=== PATIENT | female | born 1935 | race Caucasian/White ===

== ENCOUNTER 2021-06-16 13:55 | Inpatient (IN) | payer MEDICARE, BC ==
[~2021-06-16] VITALS: Ht 152.4 cm; Wt 58.6 kg
[2021-06-16 14:43] LABS: BASOPHILS % (AUTO) 0.3 % (0-1); EOSINOPHILS # (AUTO) 0.1 X10'3 (0-0.9); EOSINOPHILS % (AUTO) 1.1 % (0-6); HEMATOCRIT 38.2 % (35.0-45.0); HEMOGLOBIN 12.8 g/dl (12.0-16.0); LYMPHOCYTES # (AUTO) 2.8 X10'3 (1.1-4.8); MEAN CORPUSCULAR HEMOGLOBIN 30.9 PG (27.0-31.0); MEAN CORPUSCULAR HGB CONC 33.7 g/dL (33.0-36.5); MEAN CORPUSCULAR VOLUME 91.8 FL (78-98); MEAN PLATELET VOLUME 7.9 FL (7.4-10.4); MONOCYTES # (AUTO) 0.8 X10'3 (0-0.9); NEUTROPHILS # (AUTO) 4.8 X10'3 (1.8-7.7); NEUTROPHILS % (AUTO) 56.6 % (42-75); PLATELET COUNT 223 X10'3 (140-440); RED BLOOD COUNT 4.16 X10'6 (4.20-5.60); RED CELL DISTRIBUTION WIDTH 13.7 % (11.5-14.5); WHITE BLOOD COUNT 8.6 X10'3 (4.5-11.0)
[2021-06-16 15:37] LABS: ALANINE AMINOTRANSFERASE 32 U/L (12-78); ALBUMIN 3.6 G/DL (3.4-5.0); ALKALINE PHOSPHATASE 81 IU/L (46-116); ANION GAP 11 (8-16); ASPARTATE AMINO TRANSFERASE 27 U/L (10-37); BILIRUBIN,TOTAL 0.5 MG/DL (0.1-1.0); BLOOD UREA NITROGEN 16 MG/DL (7-18); CALCIUM 8.3 MG/DL (8.5-10.1); CHLORIDE 101 MMOL/L (99-107); CREATININE 0.84 MG/DL (0.40-0.90); GLUCOSE 104 MG/DL (70-104); LIPASE 153 U/L (73-393); POTASSIUM 3.7 MMOL/L (3.5-5.1); SODIUM 140 MMOL/L (135-145); TOTAL CARBON DIOXIDE 27.8 MMOL/L (24-32); TOTAL PROTEIN 7.2 G/DL (6.4-8.2); eGFR 64 ML/MIN
[2021-06-16] MEDS ORDERED: pantoprazole IV 80 MG in normal saline 100ml IV soln 100 ML IV ONE (15:55)
--- NOTE | 2021-06-16 15:55 | NUR ---
LOCATION DIRECTOR AT BEDSIDE.
[2021-06-16] MEDS ORDERED: pantoprazole IV 40 MG in normal saline 100ml IV soln 100 ML IV SCH (16:05)
[2021-06-16] MEDS ORDERED: haloperidol 5mg tablet PO ONE (16:10)
[2021-06-16] MEDS ORDERED: QUET25TA36 PO (16:13)
[2021-06-16] MEDS ORDERED: QUET50TA24 PO (16:13)
[2021-06-16] MEDS ORDERED: BIMA2.5D EACHEYE (16:13)
[2021-06-16] MEDS ORDERED: SERT-433 PO (16:13)
[2021-06-16] MEDS ORDERED: pantoprazole 40MG/NS 100ML BAG 100 ML IV SCH (16:20)
[2021-06-16 16:30] LABS: APTT 25 SECONDS (22-32)
[2021-06-16] MEDS ORDERED: magnesium Cl slow-release 64mg tablet PO PRN (18:05)
[2021-06-16] MEDS ORDERED: magnesium hydroxide 30ml (MOM) UD suspension PO PRN (18:05)
[2021-06-16] MEDS ORDERED: mag hydrox/Alum hydrox/simeth 30ml oral suspension PO PRN (18:05)
[2021-06-16] MEDS ORDERED: ondansetron/PF 4mg/2ml inj IV PRN (18:05)
[2021-06-16] MEDS ORDERED: potassium Cl 20 mEq SR tablet PO PRN ×2 (18:05)
[2021-06-16] MEDS ORDERED: magnesium 2GM in 50ml NS 50 ML IV PRN (18:05)
[2021-06-16] MEDS ORDERED: HYDROcodone/acetaminophen 5mg/325mg tablet PO PRN (18:05)
[2021-06-16] MEDS ORDERED: morphine 2 MG/ML inj. syringe IV PRN ×2 (18:05)
[2021-06-16] MEDS ORDERED: HYDROcodone/acetaminophen 10/325mg tab PO PRN (18:05)
[2021-06-16] MEDS ORDERED: acetaminophen 325mg tablet PO PRN ×2 (18:05)
[2021-06-16] MEDS ORDERED: diphenhydrAMINE 25mg capsule PO PRN (18:05)
[2021-06-16] MEDS ORDERED: bisacodyl 10mg suppository rectal RC PRN (18:05)
[2021-06-16] MEDS ORDERED: potassium CL 10mEq/100ml bag 100 ML IV PRN (18:05)
[2021-06-16] MEDS ORDERED: acetaminophen 650mg rectal suppository RC PRN (18:05)
[2021-06-16] MEDS ORDERED: magnesium 4gm in 100ml NS 100 ML IV PRN (18:05)
[2021-06-16] MEDS: pantoprazole 40MG/NS 100ML BAG 100 ML IV SCH ×2 (19:05→20:16)
[2021-06-16] MEDS: normal saline 1000ml 1,000 ML IV SCH (19:06)
[2021-06-16] MEDS: K and/or MAG REPLACEMENT MC SCH (19:12)
[2021-06-16] MEDS ORDERED: QUEtiapine 25mg tablet PO SCH (20:00)
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
[2021-06-16] MEDS ORDERED: haloperidol lactate 5mg/ml inj IM ONE (20:20)
[2021-06-16] MEDS: docusate sod 100mg capsule PO SCH (20:33)
[2021-06-16] MEDS ORDERED: diazepam inj 5 MG/ML inj. IM ONE (23:20)
[2021-06-16] MEDS ORDERED: diazepam inj 5 MG/ML inj. IV ONE (23:25)
--- NOTE | 2021-06-16 23:29 | NUR ---
pt became combative with staff again, Michelle at bedside. recvd orders.
[2021-06-16] MEDS ORDERED: diazepam inj 5 MG/ML inj. IV PRN (23:50)
[2021-06-16 23:57] LABS: HEMATOCRIT 36.6 % (35.0-45.0); HEMOGLOBIN 12.5 g/dl (12.0-16.0); MEAN CORPUSCULAR HEMOGLOBIN 30.7 PG (27.0-31.0); MEAN CORPUSCULAR HGB CONC 34.3 g/dL (33.0-36.5); MEAN CORPUSCULAR VOLUME 89.6 FL (78-98); MEAN PLATELET VOLUME 7.6 FL (7.4-10.4); PLATELET COUNT 219 X10'3 (140-440); RED BLOOD COUNT 4.08 X10'6 (4.20-5.60); RED CELL DISTRIBUTION WIDTH 13.3 % (11.5-14.5); WHITE BLOOD COUNT 11.8 X10'3 (4.5-11.0)
[2021-06-17 00:01] LABS: OCCULT BLOOD STOOL NEGATIVE (Neg)
[2021-06-17] MEDS: pantoprazole 40MG/NS 100ML BAG 100 ML IV SCH ×3 (01:57→11:00)
[2021-06-17 03:38] LABS: EOSINOPHILS # (AUTO) 0.1 X10'3 (0-0.9); MEAN CORPUSCULAR HEMOGLOBIN 30.3 PG (27.0-31.0)
[2021-06-17 03:40] LABS: BASOPHILS % (AUTO) 0.2 % (0-1); EOSINOPHILS % (AUTO) 0.6 % (0-6); HEMOGLOBIN 12.8 g/dl (12.0-16.0); LYMPHOCYTES # (AUTO) 3.2 X10'3 (1.1-4.8); LYMPHOCYTES % (AUTO) 29.8 % (21-51); MEAN CORPUSCULAR HGB CONC 33.8 g/dL (33.0-36.5); MEAN CORPUSCULAR VOLUME 89.9 FL (78-98); MEAN PLATELET VOLUME 8.1 FL (7.4-10.4); NEUTROPHILS # (AUTO) 6.6 X10'3 (1.8-7.7); NEUTROPHILS % (AUTO) 60.4 % (42-75); PLATELET COUNT 225 X10'3 (140-440); RED BLOOD COUNT 4.23 X10'6 (4.20-5.60); RED CELL DISTRIBUTION WIDTH 13.4 % (11.5-14.5); WHITE BLOOD COUNT 10.9 X10'3 (4.5-11.0)
[2021-06-17 03:46] LABS: ALANINE AMINOTRANSFERASE 30 U/L (12-78); ALBUMIN 3.7 G/DL (3.4-5.0); ALBUMIN/GLOBULIN RATIO 1.1 (1.1-1.5); ALKALINE PHOSPHATASE 86 IU/L (46-116); ANION GAP 13 (8-16); ASPARTATE AMINO TRANSFERASE 30 U/L (10-37); BILIRUBIN,TOTAL 0.8 MG/DL (0.1-1.0); BLOOD UREA NITROGEN 12 MG/DL (7-18); BUN/CREATININE RATIO 13.5 (6.6-38.0); CALCIUM 8.3 MG/DL (8.5-10.1); CHLORIDE 104 MMOL/L (99-107); CREATININE 0.89 MG/DL (0.40-0.90); GLUCOSE 134 MG/DL (70-104); MAGNESIUM 2.1 MG/DL (1.5-2.4); PHOSPHORUS 3.5 MG/DL (2.3-4.5); POTASSIUM 3.7 MMOL/L (3.5-5.1); SODIUM 141 MMOL/L (135-145); TOTAL CARBON DIOXIDE 24.3 MMOL/L (24-32); TOTAL PROTEIN 7.1 G/DL (6.4-8.2); eGFR 60 ML/MIN
--- NOTE | 2021-06-17 06:51 | NUR ---
received report from cyndy smith. awaiting patient arrival.
--- NOTE | 2021-06-17 07:13 | NUR ---
patient arrived to floor. VSS.
[2021-06-17 07:15] VITALS: BP 139/71
[2021-06-17] MEDS: normal saline 1000ml 1,000 ML IV SCH (07:25)
[2021-06-17] MEDS: docusate sod 100mg capsule PO SCH (07:31)
[2021-06-17] MEDS ORDERED: latanoprost 0.005% 2.5ml ophthalmic drops EACHEYE SCH (08:00)
[2021-06-17] MEDS: K and/or MAG REPLACEMENT MC SCH (08:00)
[2021-06-17] MEDS ORDERED: sertraline 50mg tablet PO SCH (08:00)
[2021-06-17 08:36] LABS: HEMATOCRIT 35.8 % (35.0-45.0); HEMOGLOBIN 11.9 g/dl (12.0-16.0); MEAN CORPUSCULAR HGB CONC 33.3 g/dL (33.0-36.5); MEAN PLATELET VOLUME 7.8 FL (7.4-10.4); PLATELET COUNT 195 X10'3 (140-440); RED BLOOD COUNT 3.98 X10'6 (4.20-5.60); RED CELL DISTRIBUTION WIDTH 13.7 % (11.5-14.5); WHITE BLOOD COUNT 7.8 X10'3 (4.5-11.0)
[2021-06-17] MEDS ORDERED: PANT40TA54 PO (10:01)
[2021-06-17 10:35] VITALS: BP 141/48
--- NOTE | 2021-06-17 11:30 | NUR ---
Patient stable and appropriate for discharge back to [facility] with daughter. All discharge instructions and education given and reviewed with patient and daughter at bedside. All questions answered. New RX e-scripted to preferred pharmacy. Awaiting MD rounds to discharge patient.
--- NOTE | 2021-06-17 11:45 | NUR ---
IV removed, all belongings taken from room. Patient discharged with daughter.
[2021-06-17] MEDS ORDERED: QUEtiapine 25mg tablet PO SCH (16:00)
== END 2021-06-17 12:00 | disposition home or self-care (01) | DRG 392 ==
LOC: ER 13:56 → UNDOADMIN 18:08 → ED HOLD 18:08 → EDBEDREQSVC 06-17 06:47 → ORTHO 4S 06-17 07:05
PROVIDERS: ADMIT Family Medicine; ATTEND Family Medicine
DX: K21.9 Gastro-esophageal reflux disease without esophagitis (principal); F03.90 Unspecified dementia, unspecified severity, without behavioral disturbance, psychotic disturbance, mood disturbance, and anxiety; Z66 Do not resuscitate
CPT/HCPCS: 36415; 71045; 80053; 82272; 83690; 83735; 84100; 85025; 85027; 85610; 85730; 86885; 86900; 86901; 87081; 93005; 97161; 97530; 99285; C9113; G0378; J1630; J3360; J7030; Q0163